=== PATIENT | male | born 1985 | race Caucasian/White ===

== ENCOUNTER 2017-03-04 19:27 | Emergency (ER) | payer OTHER ==
[2017-03-04 19:31] VITALS: BP 138/89; PULSE 87; RESP 16; TEMP 97.6; O2SAT 99
--- NOTE | 2017-03-04 19:42 | PD ---
HPI Chief Complaint: Injury Time Seen by Provider: 19:42 Travel History International Travel<30 days: No Contact w/Intl Traveler<30days: No Traveled to known affect area: No History of Present Illness HPI 31-year-old male came to the emergency room with history of being hit by a large iron beam accidentally at work. Patient says this happened about 30-40 minutes ago. He did not lose consciousness but he did get hit on his left side of the face and he ended up falling on the left side after which his elbow was hurting as well. His job sent him here to be checked out. Vital signs are stable. Patient does not appear to be in any significant distress. He also complains of some base of the neck pain. Vital signs are stable. [facility] Past Medical History Narrative Medical List of his past medical, surgical, social and family history is reviewed from the nursing note. Social History Tobacco Use: Yes Allergies-Medications (Allergen,Severity, Reaction): Coded Allergies: No Known Allergies (Unverified , 03/04/17) Comments No known drug allergies. Reported Meds & Prescriptions Reported Meds & Active Scripts Active Reported Xanax (Alprazolam) 1 Mg Tab 1 Mg PO BID PRN Narrative Medication List of his home medications reviewed from the nursing note. Review of Systems Except as stated in HPI: all other systems reviewed are Neg Physical Exam Narrative GENERAL: Awake, alert, no obvious distress, covered in dirt SKIN: Focused skin assessment warm/dry. Covered in dirt HEAD: Atraumatic. Normocephalic. EYES: Pupils equal and round. No scleral icterus. No injection or drainage. ENT: No nasal bleeding or discharge. Mucous membranes pink and moist. NECK: Trachea midline. No JVD. Midline C5, C6 tenderness on palpation CARDIOVASCULAR: Regular rate and rhythm. No murmur appreciated. RESPIRATORY: No accessory muscle use. Clear to auscultation. Breath sounds equal bilaterally. GASTROINTESTINAL: Abdomen soft, non-tender, nondistended. Hepatic and splenic margins not palpable. MUSCULOSKELETAL: No obvious deformities. No clubbing. No cyanosis. No edema. Tender over the left trochlea, NEUROLOGICAL: Awake and alert. No obvious cranial nerve deficits. Motor grossly within normal limits. Normal speech. PSYCHIATRIC: Appropriate mood and affect; insight and judgment normal. Data Data Last Documented VS Orders Orders Elbow, Complete (4 Vws) (03/04/17 ) Spine, Cervical Compl([id number]) (03/04/17 ) Ct Brain W/O Iv Contrast(Rout) (03/04/17 ) Ct Facial Bones W/O Iv Cont (03/04/17 ) Tetanus/Diphtheria Tox Adult (Tetanus/Di (03/04/17 19:45) Ibuprofen (Motrin) (03/04/17 20:00) Ed Discharge Order (03/04/17 21:34) MDM Medical Decision Making Medical Screen Exam Complete: Yes Emergency Medical Condition: Yes Medical Record Reviewed: Yes Differential Diagnosis Intracranial bleed, facial fracture, cervical fracture Narrative Course 7:51 PM awaiting for the CAT scan and x-rays to be done and resulted. I've ordered tetanus shot. I'll give him some Motrin for the pain. 9:33 PM x-ray and CAT scan are negative. I'll discharge him home. Procedures EKG Prior to Arrival: No Diagnosis Primary Impression: Facial injury Qualified Codes: S09.93XA - Unspecified injury of face, initial encounter Additional Impression: Elbow contusion Qualified Codes: S50.02XA - Contusion of left elbow, initial encounter Referrals: Primary Care Physician Additional Instructions: Take Motrin/ibuprofen/Advil for pain if needed. Apply ice pack. Follow up with primary care. Med/Other Pt SpecificInfo: No Meds Exist/No RX given Disposition: 01 DISCHARGE HOME Condition: Stable Jesica David MD Mar 04, 2017 19:42
[2017-03-04] MEDS ORDERED: TETANUS/DIPHTHERIA TOXOID ADULT 0.5 ML VIAL IM ONE (19:45)
[2017-03-04] MEDS ORDERED: XANA1TAB2 PO (19:47)
[2017-03-04] MEDS ORDERED: IBUPROFEN 600 MG TAB PO ONE (20:00)
--- NOTE | 2017-03-04 20:52 | RADRPT ---
EXAM DATE/TIME: 03/04/2017 20:32 [facility] COMPARISON: CT FACIAL BONES W/O CONTRAST, March 04, 2017, 20:32. INDICATIONS : Trauma, patient states he was struck in the face by a beam and fell 7 feet to the ground. RADIATION DOSE: 39.23 CTDIvol (mGy) MEDICAL HISTORY : None SURGICAL HISTORY : None. ENCOUNTER: Initial ACUITY: 1 day PAIN SCALE: 5/10 LOCATION: cranial TECHNIQUE: Multiple contiguous axial images were obtained of the head. Using automated exposure control and adj ustment of the mA and/or kV according to patient size, radiation dose was kept as low as reasonably a chievable to obtain optimal diagnostic quality images. DICOM format image data is available electro nically for review and comparison. FINDINGS: CEREBRUM: The ventricles are normal for age. No evidence of midline shift, mass lesion, hemorrhage or acute in farction. No extra-axial fluid collections are seen. POSTERIOR FOSSA: The cerebellum and brainstem are intact. The 4th ventricle is midline. The cerebellopontine angle i s unremarkable. EXTRACRANIAL: The visualized portion of the orbits is intact. Mucosal thickening and mucous retention cyst formatio n is noted within the right maxillary sinus. SKULL: The calvaria is intact. No evidence of skull fracture. CONCLUSION: No acute intracranial abnormality. Mucosal thickening and mucous retention cyst forma tion within the right maxillary sinus. Seth Lara MD on March 04, 2017 at 20:48 Board Certified Radiologist. This report was verified electronically.
--- NOTE | 2017-03-04 20:54 | RADRPT ---
EXAM DATE/TIME: 03/04/2017 20:32 [facility] COMPARISON: No previous studies available for comparison. INDICATIONS : Trauma, patient states he was struck in left side of face by a beam and fell 7 feet to the ground. RADIATION DOSE: 40.20 CTDIvol (mGy) MEDICAL HISTORY : None SURGICAL HISTORY : None. ENCOUNTER: Initial ACUITY: 1 day PAIN SCORE: 5/10 LOCATION: Left facial TECHNIQUE: Volumetric scanning of the facial bones was performed. Using automated exposure control and adjustme nt of the mA and/or kV according to patient size, radiation dose was kept as low as reasonably achiev able to obtain optimal diagnostic quality images. DICOM format image data is available electronicall y for review and comparison. FINDINGS: ORBITS: The orbital and infraorbital osseous structures are intact. The retroconal structures have a normal configuration. No radiopaque foreign bodies are seen. NASAL BONE: The nasal bone and maxillary spine are intact ZYGOMATIC ARCHES: Symmetric without evidence of fracture. SINUSES: The ethmoid and frontal sinuses are intact. No air-fluid levels seen. Mucosal thickening and mucous retention cyst formation is noted within the right maxillary sinus. NASAL CAVITY: The nasal septum is intact and midline. The lacrimal ducts are intact. SOFT TISSUES: No radiopaque foreign bodies seen. No soft-tissue swelling is seen. INTRACRANIAL: No intracranial air seen. CRIBIFORM PLATE: Grossly intact. CONCLUSION: No facial bone fracture. Mucosal thickening and mucous retention cyst formation within the right maxi llary sinus. Seth Lara MD on March 04, 2017 at 20:51 Board Certified Radiologist. This report was verified electronically.
--- NOTE | 2017-03-04 21:24 | RADRPT ---
EXAM DATE/TIME: 03/04/2017 20:10 [facility] COMPARISON: No previous studies available for comparison. INDICATIONS : Left elbow pain. Patient states he was hit by a [place] swinging a heavy object at work. MEDICAL HISTORY : None. SURGICAL HISTORY : None. ENCOUNTER: Initial ACUITY: 1 day PAIN SCORE: 6/10 LOCATION: Left elbow. FINDINGS: Multiple view examination of the left elbow demonstrates no soft tissue swelling, joint effusion, or fracture. The osseous structures are in normal alignment. Bony mineralization is normal. CONCLUSION: No acute disease. Seth Lara MD on March 04, 2017 at 21:23 Board Certified Radiologist. This report was verified electronically.
--- NOTE | 2017-03-04 21:30 | RADRPT ---
EXAM DATE/TIME: 03/04/2017 20:13 [facility] COMPARISON: No previous studies available for comparison. INDICATIONS : Neck pain. Patient states he was hit in the face by a [place] swinging a heavy object at work. MEDICAL HISTORY : None. SURGICAL HISTORY : None. ENCOUNTER: Initial ACUITY: 1 day PAIN SCORE: 8/10 LOCATION: cervical spine. FINDINGS: There is straightening of the normal cervical lordosis. Mild cervical spondylosis is noted at C4-5 an d C5-6. No acute fracture or prevertebral soft tissue swelling is noted. CONCLUSION: No acute fracture or prevertebral soft tissue swelling. Mild cervical spondylosis at C4-5 and C5-6. S traightening of the normal cervical lordosis. Seth Lara MD on March 04, 2017 at 21:27 Board Certified Radiologist. This report was verified electronically.
== END 2017-03-04 21:40 | disposition home or self-care (01) ==
LOC: NEPC 19:27
DX: S09.93XA Unspecified injury of face, initial encounter (principal); S50.02XA Contusion of left elbow, initial encounter; M54.2 Cervicalgia; M47.9 Spondylosis, unspecified; W22.8XXA Striking against or struck by other objects, initial encounter; Z23 Encounter for immunization; Z72.0 Tobacco use
CPT/HCPCS: 70450; 70486; 72050; 73080; 90471; 90714